=== PATIENT | male | born 1975 | race African-American/Black ===

== ENCOUNTER 2023-08-08 21:51 | Inpatient (IN) | payer OTHER ==
[~2023-08-08] VITALS: Ht 193 cm; Wt 172.4 kg
[2023-08-08] MEDS ORDERED: TOPUD PO (23:08)
[2023-08-08] MEDS ORDERED: KETOROLAC 60MG/2ML VIAL IM ONE (23:45)
[2023-08-08] MEDS ORDERED: ACETAMINOPHEN 325MG TABLET PO ONE (23:45)
[2023-08-08 23:53] LABS: BASOPHILS % 0.3 % (0.0-2.0); EOSINOPHILS % 1.3 % (0.0-5.0); HEMATOCRIT. 43.1 % (42.0-52.0); HEMOGLOBIN. 14.7 g/dL (14.0-18.0); LYMPHOCYTES % 15.5 % (20.0-50.0); MEAN CORPUSCULAR HEMOGLOBIN 29.3 pg (28.0-32.0); MEAN CORPUSCULAR HGB CONC 34.2 g/dL (31.0-37.0); MEAN CORPUSCULAR VOLUME 85.8 fL (80.0-94.0); MONOCYTES % 6.1 % (2.0-8.0); NEUTROPHILS % 76.8 % (40.0-76.0); PLATELET 318 x1000/uL (130-400); RED BLOOD CELL COUNT 5.02 mill/uL (4.7-6.1); WHITE BLOOD COUNT 8.6 x1000/uL (4.5-11.0)
[2023-08-08 23:58] LABS: CHLORIDE 106 mEq/L (98-107); INDEX HEMOLYSI 1 (1-3); INDEX ICTERIC 1 (1-4); INDEX LIPEMIC 1 (1-3); POTASSIUM 4.3 mEq/L (3.5-5.1); SODIUM 138 mEq/L (136-145)
[2023-08-09 00:06] LABS: ALANINE AMINOTRANSFERASE 21 IU/L (13-61); ALBUMIN 3.2 g/dL (3.4-5.0); ASPARTATE AMINOTRANSFERASE 17 IU/L (15-37); BILIRUBIN TOTAL 0.3 mg/dL (0.1-1.0); CARBON DIOXIDE 28 mEq/L (21-32); CREATININE 1.4 mg/dL (0.6-1.3); GLUCOSE 194 mg/dL (70-105); PROTEIN TOTAL 7.6 g/dL (6.0-8.3); UREA NITROGEN BLOOD 13 mg/dL (7-21)
[2023-08-09] MEDS ORDERED: ONDANSETRON HCL 4MG/2ML INJ IV PRN (03:45)
[2023-08-09] MEDS ORDERED: MAGNESIUM/ALUMINUM HYDROXIDE/SIMETHICONE 30ML UDC PO PRN (03:45)
[2023-08-09] MEDS ORDERED: ZOLPIDEM TARTRATE 5MG TABLET PO PRN (03:45)
[2023-08-09] MEDS ORDERED: ACETAMINOPHEN 325MG TABLET PO PRN (03:45)
[2023-08-09] MEDS ORDERED: DEXTROSE 50% WATER 50ML SYRINGE IV PRN (03:45)
[2023-08-09 04:15] VITALS: BP 161/98; PULSE 92; RESP 22; TEMP 98.7
[2023-08-09] MEDS: HYDROCODONE/ACETAMINOPHEN 10/325MG TABLET PO PRN ×3 (05:09→17:51)
[2023-08-09 05:14] VITALS: BP 162/100; PULSE 78; RESP 18; TEMP 98.3
[2023-08-09] MEDS: INSULIN LISPRO 100 UNITS/ML SUBCUT SCH ×3 (07:50→21:00)
[2023-08-09] MEDS: BLOOD SUGAR DIAGNOSTIC STRIP TEST SCH ×4 (07:55→21:53)
[2023-08-09 08:00] VITALS: BP 160/63; PULSE 83; RESP 20; TEMP 97.9
[2023-08-09] MEDS: ENOXAPARIN 40MG/0.4ML SYR SUBCUT SCH ×2 (09:20→21:47)
[2023-08-09] MEDS ORDERED: CLONIDINE 0.2MG TABLET PO SCH (11:30)
[2023-08-09] MEDS ORDERED: CLONIDINE 0.2MG TABLET PO PRN (11:45)
[2023-08-09 12:00] VITALS: BP 176/98; PULSE 72; RESP 20; TEMP 97.8
[2023-08-09] MEDS ORDERED: IBUPROFEN 600MG TABLET PO PRN (12:30)
[2023-08-09] MEDS ORDERED: NALOXONE HCL 0.4MG/ML VIAL IV PRN (13:00)
[2023-08-09] MEDS: AMLODIPINE 5MG TABLET PO SCH ×2 (13:06→21:48)
[2023-08-09 16:00] VITALS: BP 150/95; PULSE 91; RESP 19; TEMP 98.4
[2023-08-09] MEDS: ACETAMINOPHEN 325MG TABLET PO PRN (21:48)
[2023-08-09] MEDS: SODIUM CHLORIDE 0.9% INJ 3ML FLUSH IVF SCH (22:00)
[2023-08-10] VITALS: BP 136/89; PULSE 97; RESP 20; TEMP 96.6
[2023-08-10] MEDS: HYDROCODONE/ACETAMINOPHEN 10/325MG TABLET PO PRN ×3 (00:02→18:45)
[2023-08-10 04:00] VITALS: BP 136/91; PULSE 94; RESP 20; TEMP 98.4
[2023-08-10] MEDS: ACETAMINOPHEN 325MG TABLET PO PRN (05:50)
[2023-08-10] MEDS: SODIUM CHLORIDE 0.9% INJ 3ML FLUSH IVF SCH ×3 (06:03→22:00)
[2023-08-10] MEDS: INSULIN LISPRO 100 UNITS/ML SUBCUT SCH ×3 (07:41→21:00)
[2023-08-10 08:00] VITALS: BP 124/88; PULSE 104; RESP 20; TEMP 98.1
[2023-08-10] MEDS: ENOXAPARIN 40MG/0.4ML SYR SUBCUT SCH ×2 (08:06→21:17)
[2023-08-10] MEDS: AMLODIPINE 5MG TABLET PO SCH ×2 (08:07→21:16)
[2023-08-10 12:00] VITALS: BP 169/89; PULSE 102; RESP 22; TEMP 97.9
[2023-08-10 16:00] VITALS: BP 144/88; PULSE 101; RESP 20; TEMP 98.8
[2023-08-10] MEDS: BLOOD SUGAR DIAGNOSTIC STRIP TEST SCH (19:00)
[2023-08-10] MEDS ORDERED: BETA50CR5 TP (19:32)
[2023-08-10] MEDS ORDERED: DULA0.75 SUBCUT (19:32)
[2023-08-10] MEDS ORDERED: ISOS1TAB3 PO (19:32)
[2023-08-10] MEDS ORDERED: FEXO-270 PO (19:32)
[2023-08-10] MEDS ORDERED: ERGO1250 PO (19:32)
[2023-08-10 20:00] VITALS: BP 155/84; PULSE 124; RESP 20; TEMP 98.8
[2023-08-11] VITALS: BP 119/72; PULSE 114; RESP 20; TEMP 98.2
[2023-08-11 04:00] VITALS: BP 130/74; PULSE 109; RESP 20; TEMP 99
[2023-08-11] MEDS: HYDROCODONE/ACETAMINOPHEN 10/325MG TABLET PO PRN ×2 (05:42→11:49)
[2023-08-11 08:00] VITALS: BP 133/77; PULSE 82; RESP 19; TEMP 98.9
[2023-08-11] MEDS: SODIUM CHLORIDE 0.9% INJ 3ML FLUSH IVF SCH ×2 (08:00→21:18)
[2023-08-11] MEDS: AMLODIPINE 5MG TABLET PO SCH ×2 (09:09→21:05)
[2023-08-11] MEDS: ACETAMINOPHEN 325MG TABLET PO PRN (09:10)
[2023-08-11] MEDS: ENOXAPARIN 40MG/0.4ML SYR SUBCUT SCH ×2 (09:10→21:05)
[2023-08-11 12:00] VITALS: BP 144/78; PULSE 97; RESP 19; TEMP 98.8
[2023-08-11 20:00] VITALS: BP 112/61; PULSE 119; RESP 20; TEMP 100.2
[2023-08-11] MEDS: INSULIN LISPRO 100 UNITS/ML SUBCUT SCH ×2 (21:16→21:30)
[2023-08-11] MEDS: BLOOD SUGAR DIAGNOSTIC STRIP TEST SCH (21:18)
[2023-08-11] MEDS: DICLOFENAC SODIUM 1% GEL 50GM TOP SCH (21:27)
[2023-08-12] VITALS: BP 145/70; PULSE 105; RESP 20; TEMP 97.9
[2023-08-12] MEDS: HYDROCODONE/ACETAMINOPHEN 10/325MG TABLET PO PRN ×2 (01:51→08:25)
[2023-08-12 04:00] VITALS: BP 115/68; PULSE 107; RESP 20; TEMP 98.1
[2023-08-12] MEDS: SODIUM CHLORIDE 0.9% INJ 3ML FLUSH IVF SCH ×2 (06:27→13:12)
[2023-08-12] MEDS: BLOOD SUGAR DIAGNOSTIC STRIP TEST SCH ×4 (06:56→21:45)
[2023-08-12] MEDS: INSULIN LISPRO 100 UNITS/ML SUBCUT SCH ×3 (07:50→21:00)
[2023-08-12 08:00] VITALS: BP 115/72; PULSE 102; RESP 20; TEMP 98.2
[2023-08-12] MEDS: ENOXAPARIN 40MG/0.4ML SYR SUBCUT SCH ×2 (08:24→21:19)
[2023-08-12] MEDS: AMLODIPINE 5MG TABLET PO SCH ×2 (08:25→21:00)
[2023-08-12] MEDS: LIDOCAINE 5% PATCH TOP SCH ×2 (08:33→08:35)
[2023-08-12] MEDS: DICLOFENAC SODIUM 1% GEL 50GM TOP SCH ×3 (08:34→21:00)
[2023-08-12 12:00] VITALS: BP 121/84; PULSE 100; RESP 20; TEMP 98.4
[2023-08-12] MEDS ORDERED: METHYLPREDNISOLONE SOD SUCC 40MG/ML (ACT-O-VIAL) IV NR (14:15)
[2023-08-12 20:00] VITALS: BP 139/86; PULSE 100; RESP 20; TEMP 101.1
[2023-08-12] MEDS: COLCHICINE 0.6MG TABLET PO SCH (21:00)
[2023-08-12] MEDS: ACETAMINOPHEN 325MG TABLET PO PRN (21:31)
[2023-08-13] MEDS: HYDROCODONE/ACETAMINOPHEN 10/325MG TABLET PO PRN ×3 (02:35→17:54)
[2023-08-13 08:00] VITALS: BP 142/82; PULSE 91; RESP 20; TEMP 97.6
[2023-08-13] MEDS: COLCHICINE 0.6MG TABLET PO SCH ×3 (08:51→21:58)
[2023-08-13] MEDS: AMLODIPINE 5MG TABLET PO SCH ×2 (08:51→21:00)
[2023-08-13] MEDS: ENOXAPARIN 40MG/0.4ML SYR SUBCUT SCH ×2 (08:51→21:58)
[2023-08-13] MEDS: LIDOCAINE 5% PATCH TOP SCH (09:00)
[2023-08-13] MEDS ORDERED: LIDOCAINE HCL 1% 10 MG/ML 10ML VIAL ONE (11:24)
[2023-08-13] MEDS ORDERED: SODIUM BICARBONATE 4% (2.4MEQ) 5ML VIAL IV ONE (11:24)
[2023-08-13] MEDS: BLOOD SUGAR DIAGNOSTIC STRIP TEST SCH ×2 (12:20→21:00)
[2023-08-13] MEDS: INSULIN LISPRO 100 UNITS/ML SUBCUT SCH ×2 (12:50→21:00)
[2023-08-13] MEDS: DICLOFENAC SODIUM 1% GEL 50GM TOP SCH ×2 (13:00→21:00)
[2023-08-13 14:07] LABS: BODY FLUID WBC 20000 /cu mm (0-200)
[2023-08-13 14:08] LABS: BODY FLUID RBC 10500 /cu mm (0-2000)
[2023-08-13 14:13] LABS: BODY FLUID MONOCYTES 1 %
[2023-08-13 16:00] VITALS: BP 152/70; PULSE 92; RESP 20; TEMP 97
[2023-08-13 20:00] VITALS: BP 108/67; PULSE 94; RESP 20; TEMP 96.8
[2023-08-13] MEDS: SODIUM CHLORIDE 0.9% INJ 3ML FLUSH IVF SCH (21:57)
[2023-08-14] VITALS: BP 111/63; PULSE 90; RESP 20; TEMP 96.5
[2023-08-14] MEDS: SODIUM CHLORIDE 0.9% INJ 3ML FLUSH IVF SCH ×3 (06:00→22:00)
[2023-08-14] MEDS: BLOOD SUGAR DIAGNOSTIC STRIP TEST SCH ×4 (06:39→21:00)
[2023-08-14] MEDS: INSULIN LISPRO 100 UNITS/ML SUBCUT SCH ×4 (07:50→21:00)
[2023-08-14 08:00] VITALS: BP 136/83; PULSE 92; RESP 20; TEMP 97.8
[2023-08-14] MEDS: ENOXAPARIN 40MG/0.4ML SYR SUBCUT SCH ×2 (08:34→21:50)
[2023-08-14] MEDS: COLCHICINE 0.6MG TABLET PO SCH ×2 (08:34→21:51)
[2023-08-14] MEDS: AMLODIPINE 5MG TABLET PO SCH ×2 (08:34→21:51)
[2023-08-14] MEDS: LIDOCAINE 5% PATCH TOP SCH (08:35)
[2023-08-14] MEDS: DICLOFENAC SODIUM 1% GEL 50GM TOP SCH ×2 (09:00→17:00)
[2023-08-14] MEDS ORDERED: HYDROCODONE/ACETAMINOPHEN 10/325MG TABLET PO PRN (10:00)
[2023-08-14] MEDS ORDERED: NALOXONE HCL 0.4MG/ML VIAL IV PRN (10:15)
[2023-08-14 12:00] VITALS: BP 137/74; PULSE 87; RESP 21; TEMP 97.8
[2023-08-14] MEDS ORDERED: ONDANSETRON 4MG ODT PO PRN (19:35)
[2023-08-14 20:00] VITALS: BP 128/82; PULSE 89; RESP 18; TEMP 99
[2023-08-15] MEDS: SODIUM CHLORIDE 0.9% INJ 3ML FLUSH IVF SCH ×3 (06:00→21:26)
[2023-08-15] MEDS: BLOOD SUGAR DIAGNOSTIC STRIP TEST SCH ×4 (07:20→21:00)
[2023-08-15] MEDS: INSULIN LISPRO 100 UNITS/ML SUBCUT SCH ×4 (07:50→21:00)
[2023-08-15 08:00] VITALS: BP 147/85; PULSE 98; RESP 18; TEMP 98.1
[2023-08-15] MEDS: ENOXAPARIN 40MG/0.4ML SYR SUBCUT SCH ×2 (09:38→21:25)
[2023-08-15] MEDS: COLCHICINE 0.6MG TABLET PO SCH ×2 (09:39→13:45)
[2023-08-15] MEDS: LIDOCAINE 5% PATCH TOP SCH (09:39)
[2023-08-15] MEDS: DICLOFENAC SODIUM 75MG DR (EC) TABLET PO SCH ×2 (09:39→21:22)
[2023-08-15] MEDS: PREDNISONE 10MG TABLET PO SCH (09:40)
[2023-08-15] MEDS: AMLODIPINE 5MG TABLET PO SCH ×2 (09:40→21:22)
[2023-08-15 12:00] VITALS: BP 142/88; PULSE 96; RESP 18; TEMP 97.8
[2023-08-15] MEDS: DICLOFENAC SODIUM 1% GEL 50GM TOP SCH ×2 (12:40→21:24)
[2023-08-15 16:00] VITALS: BP 157/87; PULSE 98; RESP 18; TEMP 97.5
[2023-08-15 20:00] VITALS: BP 138/88; PULSE 90; RESP 20; TEMP 99.5
[2023-08-16 04:00] VITALS: BP 138/86; PULSE 96; RESP 18; TEMP 96.1
[2023-08-16] MEDS: SODIUM CHLORIDE 0.9% INJ 3ML FLUSH IVF SCH ×2 (06:00→22:00)
[2023-08-16] MEDS: BLOOD SUGAR DIAGNOSTIC STRIP TEST SCH ×4 (07:20→21:00)
[2023-08-16] MEDS: INSULIN LISPRO 100 UNITS/ML SUBCUT SCH ×4 (07:50→21:00)
[2023-08-16 08:00] VITALS: BP 128/79; PULSE 77; RESP 17; TEMP 97.5
[2023-08-16] MEDS: PREDNISONE 10MG TABLET PO SCH (08:11)
[2023-08-16] MEDS: COLCHICINE 0.6MG TABLET PO SCH (08:12)
[2023-08-16] MEDS: AMLODIPINE 5MG TABLET PO SCH ×2 (08:12→21:07)
[2023-08-16] MEDS: ENOXAPARIN 40MG/0.4ML SYR SUBCUT SCH ×2 (08:13→21:08)
[2023-08-16] MEDS: LIDOCAINE 5% PATCH TOP SCH (08:13)
[2023-08-16] MEDS: DICLOFENAC SODIUM 75MG DR (EC) TABLET PO SCH ×2 (09:00→21:07)
[2023-08-16 12:00] VITALS: BP 124/97; PULSE 85; RESP 18; TEMP 97.5
[2023-08-16 16:00] VITALS: BP 152/86; PULSE 89; RESP 17; TEMP 97.5
[2023-08-16 20:00] VITALS: BP 154/87; PULSE 89; RESP 18; TEMP 96.4
[2023-08-16] MEDS: DICLOFENAC SODIUM 1% GEL 50GM TOP SCH (21:10)
[2023-08-17] VITALS: BP 141/80; PULSE 82; RESP 18; TEMP 96.3
[2023-08-17 04:00] VITALS: BP 141/59; PULSE 70; RESP 18; TEMP 96.8
[2023-08-17] MEDS: SODIUM CHLORIDE 0.9% INJ 3ML FLUSH IVF SCH ×2 (06:00→14:00)
[2023-08-17] MEDS: BLOOD SUGAR DIAGNOSTIC STRIP TEST SCH ×2 (07:20→20:46)
[2023-08-17 08:00] VITALS: BP 152/83; PULSE 87; RESP 19; TEMP 97.7
[2023-08-17] MEDS: AMLODIPINE 5MG TABLET PO SCH ×2 (08:25→20:41)
[2023-08-17] MEDS: PREDNISONE 10MG TABLET PO SCH (08:25)
[2023-08-17] MEDS: COLCHICINE 0.6MG TABLET PO SCH (08:25)
[2023-08-17] MEDS: DICLOFENAC SODIUM 75MG DR (EC) TABLET PO SCH ×2 (08:25→20:41)
[2023-08-17] MEDS: ENOXAPARIN 40MG/0.4ML SYR SUBCUT SCH ×2 (08:27→20:41)
[2023-08-17] MEDS: LIDOCAINE 5% PATCH TOP SCH (08:27)
[2023-08-17] MEDS: DICLOFENAC SODIUM 1% GEL 50GM TOP SCH (08:27)
[2023-08-17 12:00] VITALS: BP 132/74; PULSE 82; RESP 18; TEMP 98.2
[2023-08-17 16:00] VITALS: BP 147/101; PULSE 82; RESP 19; TEMP 97.7
[2023-08-17 16:55] LABS: BASOPHILS % 0.4 % (0.0-2.0); EOSINOPHILS % 0.5 % (0.0-5.0); HEMATOCRIT. 42.7 % (42.0-52.0); HEMOGLOBIN. 14.1 g/dL (14.0-18.0); LYMPHOCYTES % 18.3 % (20.0-50.0); MEAN CORPUSCULAR HEMOGLOBIN 28.4 pg (28.0-32.0); MEAN PLATELET VOLUME 8.7 fl (7.4-10.4); MONOCYTES % 6.3 % (2.0-8.0); NEUTROPHILS % 74.5 % (40.0-76.0); PLATELET 444 x1000/uL (130-400); RED BLOOD CELL COUNT 4.97 mill/uL (4.7-6.1); RED CELL DISTRIBUTION WIDTH 14.3 % (11.6-14.6); WHITE BLOOD COUNT 9.9 x1000/uL (4.5-11.0)
[2023-08-17 17:15] LABS: CHLORIDE 102 mEq/L (98-107); INDEX HEMOLYSI 6 (1-3); INDEX ICTERIC 1 (1-4); INDEX LIPEMIC 1 (1-3); SODIUM 130 mEq/L (136-145)
[2023-08-17 17:29] LABS: ALANINE AMINOTRANSFERASE 125 IU/L (13-61); ALBUMIN 2.4 g/dL (3.4-5.0); ASPARTATE AMINOTRANSFERASE 84 IU/L (15-37); CARBON DIOXIDE 26 mEq/L (21-32); CREATININE 1.1 mg/dL (0.6-1.3); GLUCOSE 101 mg/dL (70-105); PROTEIN TOTAL 8.2 g/dL (6.0-8.3); UREA NITROGEN BLOOD 18 mg/dL (7-21)
[2023-08-17 17:32] LABS: CALCIUM 8.6 mg/dL (8.5-10.1)
[2023-08-17 17:51] LABS: POTASSIUM 4.8 mEq/L (3.5-5.1)
[2023-08-17 18:04] LABS: VITAMIN B12 SERUM 686 pg/mL (211-911)
[2023-08-17 20:00] VITALS: BP 161/97; PULSE 80; RESP 20; TEMP 97.5
[2023-08-17] MEDS: INSULIN LISPRO 100 UNITS/ML SUBCUT SCH (20:46)
[2023-08-18] VITALS: BP 149/79; PULSE 84; RESP 20; TEMP 97.2
[2023-08-18 04:00] VITALS: BP 151/95; PULSE 74; RESP 20; TEMP 96.6
[2023-08-18] MEDS: BLOOD SUGAR DIAGNOSTIC STRIP TEST SCH ×4 (06:24→20:42)
[2023-08-18 07:43] LABS: INDEX HEMOLYSI 1 (1-3)
[2023-08-18] MEDS: INSULIN LISPRO 100 UNITS/ML SUBCUT SCH ×4 (07:50→20:42)
[2023-08-18 07:56] LABS: CREATINE KINASE 211 IU/L (39-308)
[2023-08-18 08:00] VITALS: BP 148/88; PULSE 69; RESP 17; TEMP 97.5
[2023-08-18] MEDS: DICLOFENAC SODIUM 75MG DR (EC) TABLET PO SCH ×2 (09:32→20:39)
[2023-08-18] MEDS: COLCHICINE 0.6MG TABLET PO SCH (09:32)
[2023-08-18] MEDS: ENOXAPARIN 40MG/0.4ML SYR SUBCUT SCH ×2 (09:32→20:39)
[2023-08-18] MEDS: PREDNISONE 10MG TABLET PO SCH (09:32)
[2023-08-18] MEDS: AMLODIPINE 5MG TABLET PO SCH ×2 (09:33→20:39)
[2023-08-18] MEDS: LIDOCAINE 5% PATCH TOP SCH (09:34)
[2023-08-18] MEDS: DICLOFENAC SODIUM 1% GEL 50GM TOP SCH ×4 (09:38→20:42)
[2023-08-18 12:00] VITALS: BP 148/98; PULSE 88; RESP 16; TEMP 97.9
[2023-08-18] MEDS: SODIUM CHLORIDE 0.9% INJ 3ML FLUSH IVF SCH ×2 (14:00→22:00)
[2023-08-18 16:00] VITALS: BP 129/82; PULSE 82; RESP 17; TEMP 97.6
[2023-08-18 20:00] VITALS: BP 144/95; PULSE 95; RESP 20; TEMP 97.9
[2023-08-19] VITALS: BP 158/81; PULSE 91; RESP 20; TEMP 96.3
[2023-08-19 04:00] VITALS: BP 159/63; PULSE 76; RESP 20; TEMP 97.7
[2023-08-19] MEDS: SODIUM CHLORIDE 0.9% INJ 3ML FLUSH IVF SCH ×2 (06:00→14:00)
[2023-08-19] MEDS: BLOOD SUGAR DIAGNOSTIC STRIP TEST SCH ×2 (07:20→12:20)
[2023-08-19] MEDS: INSULIN LISPRO 100 UNITS/ML SUBCUT SCH ×2 (07:50→12:50)
[2023-08-19 08:00] VITALS: BP 142/97; PULSE 84; RESP 20; TEMP 96.8
[2023-08-19] MEDS: PREDNISONE 10MG TABLET PO SCH (09:18)
[2023-08-19] MEDS: COLCHICINE 0.6MG TABLET PO SCH (09:18)
[2023-08-19] MEDS: AMLODIPINE 5MG TABLET PO SCH (09:18)
[2023-08-19] MEDS: ENOXAPARIN 40MG/0.4ML SYR SUBCUT SCH (09:19)
[2023-08-19] MEDS: DICLOFENAC SODIUM 1% GEL 50GM TOP SCH ×2 (09:20→13:00)
[2023-08-19] MEDS: LIDOCAINE 5% PATCH TOP SCH (09:20)
[2023-08-19] MEDS: DICLOFENAC SODIUM 75MG DR (EC) TABLET PO SCH (09:20)
[2023-08-19 12:00] VITALS: BP 138/78; PULSE 80; RESP 19; TEMP 98.3
[2023-08-19] MEDS ORDERED: ERGOCALCIFEROL 50000UNITS CAPSULE PO SCH (13:00)
[2023-08-19 14:11] VITALS: BP 138/78; PULSE 80; TEMP 98.3; O2SAT 99
[2023-08-19 16:00] VITALS: BP 130/68; PULSE 78; RESP 17; TEMP 97.6
[2023-08-20 09:07] LABS: ANA IFA Negative (.)
[2023-08-20 13:07] LABS: ACTIN (SMOOTH MUSCLE) ANTIBODY 8 Units (0-19)
== END 2023-08-19 18:00 | disposition home health service (06) | DRG 914 ==
LOC: ER 21:51 → MICUSO 08-09 00:49 → EDBEDREQ 08-09 00:54 → 6EST 08-09 02:19
PROVIDERS: ADMIT Internal Medicine; ATTEND Internal Medicine
PROC: 0S9D3ZZ Drainage of Left Knee Joint, Percutaneous Approach (ICD-10-PCS; 2023-08-13)
PROC: 0S9D3ZZ Drainage of Left Knee Joint, Percutaneous Approach (ICD-10-PCS; principal; 2023-08-14)
PROC: 0S9C3ZZ Drainage of Right Knee Joint, Percutaneous Approach (ICD-10-PCS; 2023-08-14)
PROC: 0S9D3ZZ Drainage of Left Knee Joint, Percutaneous Approach (ICD-10-PCS; 2023-08-14)
PROC: 0S9C3ZZ Drainage of Right Knee Joint, Percutaneous Approach (ICD-10-PCS; 2023-08-14)
PROC: 3E0U33Z Introduction of Anti-inflammatory into Joints, Percutaneous Approach (ICD-10-PCS; 2023-08-14)
PROC: 3E0U33Z Introduction of Anti-inflammatory into Joints, Percutaneous Approach (ICD-10-PCS; 2023-08-14)
PROC: 3E0U33Z Introduction of Anti-inflammatory into Joints, Percutaneous Approach (ICD-10-PCS; 2023-08-14)
PROC: 3E0U33Z Introduction of Anti-inflammatory into Joints, Percutaneous Approach (ICD-10-PCS; 2023-08-14)
PROC: 3E0U3BZ Introduction of Anesthetic Agent into Joints, Percutaneous Approach (ICD-10-PCS; 2023-08-14)
PROC: 3E0U3BZ Introduction of Anesthetic Agent into Joints, Percutaneous Approach (ICD-10-PCS; 2023-08-14)
PROC: 3E0U3BZ Introduction of Anesthetic Agent into Joints, Percutaneous Approach (ICD-10-PCS; 2023-08-14)
PROC: 3E0U3BZ Introduction of Anesthetic Agent into Joints, Percutaneous Approach (ICD-10-PCS; 2023-08-14)
DX: S89.92XA Unspecified injury of left lower leg, initial encounter (principal); Z68.42 Body mass index [BMI] 45.0-49.9, adult; M25.462 Effusion, left knee; E66.01 Morbid (severe) obesity due to excess calories; N18.9 Chronic kidney disease, unspecified; M10.9 Gout, unspecified; S89.91XA Unspecified injury of right lower leg, initial encounter; R53.81 Other malaise; I12.9 Hypertensive chronic kidney disease with stage 1 through stage 4 chronic kidney disease, or unspecified chronic kidney disease; E11.22 Type 2 diabetes mellitus with diabetic chronic kidney disease; E55.9 Vitamin D deficiency, unspecified; D72.829 Elevated white blood cell count, unspecified; W01.0XXA Fall on same level from slipping, tripping and stumbling without subsequent striking against object, initial encounter; Y93.89 Activity, other specified; Y92.098 Other place in other non-institutional residence as the place of occurrence of the external cause; Y99.8 Other external cause status; Z83.3 Family history of diabetes mellitus
CPT/HCPCS: 20611; 36415; 73560; 73700; 76881; 80048; 80053; 82085; 82306; 82550; 82607; 82746; 82962; 84443; 84550; 85025; 86256; 89060; 97110; 97116; 97162; 97166; 97530; 97535; 99285; A4565; J1650; J1815; J1885; J3490; J7512